=== PATIENT | female | born 1970 | race Caucasian/White ===

== ENCOUNTER 2017-01-24 19:01 | Inpatient (IN) | payer SELFPAY ==
[~2017-01-24] VITALS: Ht 165.1 cm; Wt 122.0 kg
[2017-01-24] MEDS ORDERED: ONDANSETRON 8 MG/54 ML D5W IV STA (19:25)
[2017-01-24] MEDS ORDERED: MoRPHine SULFATE 4 MG/ML 1 ML CARP\\VIAL IV STA ×3 (19:25→22:49)
[2017-01-24] MEDS ORDERED: SODIUM CHLORIDE 0.9% 1000ML 1,000 ML IV STA ×2 (19:25→22:49)
--- NOTE | 2017-01-24 19:25 | EMERGENCY ROOM VISIT NOTE ---
History Report prepared by Elizabeth: Mervin Jalloh Under the Supervision of: Dr. Nicky Jackson D.O. First contact with patient: 19:12 Chief Complaint: ABDOMINAL PAIN Stated Complaint: SEVERE STOMACH PAINS;IN FRONT History of Present Illness The patient is a 46 year old female who presents to the Emergency Room with complaints of worsening/intermittent cramping abdominal pain that began 6 hours ago. She rates her pain an 8/10 in severity. She notes that on her way to the ER , her pain subsided, however it quickly came back. Changing positions does not alter the pain at all. Earlier this morning before the pain began, she had 3 episodes of diarrhea. She denies any hematochezia or melena. She is experiencing chills and nausea. She denies any vomiting or abnormal urinary symptoms. She has a history of diverticulitis and a partial bowel removal. She has not had any stomach ulcers or upper GI problems. Her pain is not in the same place as her prior diverticulitis. She has not taken anything for her pain. Source of History: patient Onset: 6 hours ago Position: abdomen Symptom Intensity: 8/10 Quality: cramping Timing: intermittent, worsening Associated Symptoms: + chills, + nausea, + diarrhea, No fevers, No vomiting , No melena, No hematochezia, No urinary symptoms Review of Systems See HPI for pertinent positives & negatives. A total of 10 systems reviewed and were otherwise negative. Past Medical & Surgical Medical Problems: (1) History of colonic diverticulitis Surgical Problems: (1) History of incisional hernia repair (2) Status post excision vulvar carcinoma in situ (3) Status post partial colectomy (4) Status post tubal ligation Family History Omitted secondary to her age. Social History Smoking Status: Current Every Day Smoker Drug Use: none Marital Status: Housing Status: lives with significant other Occupation Status: employed Current/Historical Medications No Active Prescriptions or Reported Meds Allergies Coded Allergies: No Known Allergies (Unverified , 01/24/17) Physical Exam Vital Signs Date Time Temp Pulse Resp B/P (MAP) Pulse Ox O2 Delivery O2 Flow Rate FiO2 01/25/17 00:36 75 15 92 01/25/17 00:31 74 19 143/99 96 Room Air 01/25/17 00:25 96 Room Air 01/25/17 00:05 124/59 01/25/17 00:01 65 20 01/24/17 23:31 70 17 98 Nasal Cannula 2.0 01/24/17 23:30 98 Nasal Cannula 01/24/17 23:25 71 01/24/17 23:16 96 Nasal Cannula 2.0 01/24/17 23:15 88 Room Air 01/24/17 23:15 96 Nasal Cannula 2.0 01/24/17 22:56 155/101 01/24/17 22:55 72 20 155/101 93 Room Air 01/24/17 20:59 70 18 151/84 94 Room Air 01/24/17 19:04 36.7 90 18 143/101 96 Room Air Physical Exam GENERAL: Obese female, alert, tearful appearing, well nourished, moderate distress, non-toxic, holding abdomen. EYE EXAM: normal conjunctiva, PERRL and EOM's grossly intact OROPHARYNX: no exudate, no erythema, lips, buccal mucosa, and tongue normal and mucous membranes are moist NECK: supple, no nuchal rigidity, no adenopathy, non-tender LUNGS: Clear to auscultation. Normal chest wall mechanics HEART: no murmurs, S1 normal and S2 normal ABDOMEN: abdomen soft, non-tender, normo-active bowel sounds, no masses, no rebound or guarding. No reproducible abdominal pain. BACK: Back is symmetrical on inspection and there is no deformity, no midline tenderness, no CVA tenderness. SKIN: no rashes and no bruising UPPER EXTREMITIES: upper extremities are grossly normal. LOWER EXTREMITIES: No pitting edema. NEURO EXAM: Normal sensorium, cranial nerves II-XII grossly intact, normal speech, no gross weakness of arms, no gross weakness of legs. Medical Decision & Procedures ER Provider Diagnostic Interpretation: Radiology results have been interpreted by the radiologist and reviewed by me. CT OF THE ABDOMEN AND PELVIS WITH CONTRAST CLINICAL HISTORY: Abdominal pain and diarrhea. COMPARISON STUDY: CT of the abdomen and pelvis July 08, 2014. TECHNIQUE: Following IV administration of 116 mL of Optiray-320, axial images of the abdomen and pelvis were obtained from the lung bases to the proximal femurs. Images were reviewed in the axial, sagittal, and coronal planes. IV contrast was administered without complication. A dose lowering technique was utilized adhering to the principles of ALARA. Oral contrast was administered. CT DOSE: 1693.67 mGy.cm FINDINGS: Fatty infiltration of the liver is noted. The spleen, adrenal glands, kidneys and pancreas are unremarkable with the exception of a 9 mm right renal cyst. There is no peripancreatic or pericholecystic infiltration. There is no hydronephrosis. Note is made of a previous sigmoid resection. A previous left lower quadrant ostomy site is noted. A few mildly dilated loops of small bowel within the right lower quadrant are noted, measuring up to 3.3 cm in caliber. Small bowel feces sign is noted. Transition point is noted within the distal ileum shown on image 366 of 491. The small bowel loops appear kinked. This reflects a partial small bowel obstruction. There is a small amount of ascites. The appendix is normal. No suspicious osseous lesions are present. A locule of gas anterior to the uterus and superior to the bladder shown on axial image 379 of 491 is indeterminate in location. There is no significant bowel wall thickening. No pneumatosis, free air or portal venous gas is present. There is mild mesenteric infiltration. IMPRESSION: 1. Findings consistent with a partial small bowel obstruction. Mild small bowel dilatation with transition point within the right lower quadrant, within the distal ileum. Small bowel feces sign. Mild mesenteric infiltration and ascites. No free air, pneumatosis or portal venous gas. 2. Status post sigmoid resection with a previous left lower quadrant ostomy. 3. Fatty infiltration of the liver. Electronically signed by: Bryson Matthews M.D. 01/24/2017 11:01 PM Dictated Date/Time: 01/24/2017 10:51 PM Laboratory Results 01/24/17 19:48 Red Blood Count 5.14, Mean Corpuscular Volume 87.7, Mean Corpuscular Hemoglobin 28.4, Mean Corpuscular Hemoglobin Concent 32.4, Mean Platelet Volume 9.4, Neutrophils (%) (Auto) 77.3, Lymphocytes (%) (Auto) 18.3, Monocytes (%) (Auto) 3.6, Eosinophils (%) (Auto) 0.5, Basophils (%) (Auto) 0.1, Neutrophils # (Auto) 7.93, Lymphocytes # (Auto) 1.88, Monocytes # (Auto) 0.37, Eosinophils # (Auto) 0.05, Basophils # (Auto) 0.01 Test 01/24/17 19:48 01/24/17 20:13 White Blood Count 10.26 K/uL (4.8-10.8) Red Blood Count 5.14 M/uL (4.2-5.4) Hemoglobin 14.6 g/dL (12.0-16.0) Hematocrit 45.1 % (37-47) Mean Corpuscular Volume 87.7 fL (80-100) Mean Corpuscular Hemoglobin 28.4 pg (25-34) Mean Corpuscular Hemoglobin Concent 32.4 g/dl (32-36) Platelet Count 292 K/uL (130-400) Mean Platelet Volume 9.4 fL (7.4-10.4) Neutrophils (%) (Auto) 77.3 % Lymphocytes (%) (Auto) 18.3 % Monocytes (%) (Auto) 3.6 % Eosinophils (%) (Auto) 0.5 % Basophils (%) (Auto) 0.1 % Neutrophils # (Auto) 7.93 K/uL (1.4-6.5) Lymphocytes # (Auto) 1.88 K/uL (1.2-3.4) Monocytes # (Auto) 0.37 K/uL (0.11-0.59) Eosinophils # (Auto) 0.05 K/uL (0-0.5) Basophils # (Auto) 0.01 K/uL (0-0.2) RDW Standard Deviation 53.7 fL (36.4-46.3) RDW Coefficient of Variation 16.7 % (11.5-14.5) Immature Granulocyte % (Auto) 0.2 % Immature Granulocyte # (Auto) 0.02 K/uL (0.00-0.02) Lactic Acid Level 1.5 mmol/L (0.4-2.0) Total Bilirubin 0.3 mg/dl (0.2-1) Aspartate Amino Transf (AST/SGOT) 14 U/L (15-37) Alanine Aminotransferase (ALT/SGPT) 25 U/L (12-78) Alkaline Phosphatase 182 U/L (45-117) Troponin I < 0.015 ng/ml (0-0.045) Total Protein 7.2 gm/dl (6.4-8.2) Albumin 3.3 gm/dl (3.4-5.0) Globulin 3.9 gm/dl (2.5-4.0) Albumin/Globulin Ratio 0.8 (0.9-2) Lipase 84 U/L (73-393) Urine Color YELLOW Urine Appearance CLEAR (CLEAR) Urine pH 7.0 (4.5-7.5) Urine Specific [place] 1.022 (1.000-1.030) Urine Protein NEG (NEG) Urine Glucose (UA) NEG (NEG) Urine Ketones NEG (NEG) Urine Occult Blood NEG (NEG) Urine Nitrite NEG (NEG) Urine Bilirubin NEG (NEG) Urine Urobilinogen NEG (NEG) Urine Leukocyte Esterase NEG (NEG) Laboratory results per my review. Medications Administered Medications (Trade) Dose Ordered Sig/Laz Route Start Time Stop Time Status Last Admin Dose Admin Sodium Chloride 1,000 ml @ 999 mls/hr Q1H1M STAT IV 01/24/17 19:25 01/24/17 20:25 DC 01/24/17 20:03 999 MLS/HR Ondansetron HCl (Zofran 8mg Iv) 8 mg NOW STAT IV 01/24/17 19:25 01/24/17 19:27 DC 01/24/17 20:03 8 MG Morphine Sulfate (MoRPHine SULFATE INJ) 4 mg NOW STAT IV 01/24/17 19:25 01/24/17 19:27 DC 01/24/17 20:04 4 MG Morphine Sulfate (MoRPHine SULFATE INJ) 4 mg NOW STAT IV 01/24/17 20:57 01/24/17 20:58 DC 01/24/17 21:02 4 MG Morphine Sulfate (MoRPHine SULFATE INJ) 4 mg NOW STAT IV 01/24/17 22:49 01/24/17 22:50 DC 01/24/17 22:56 4 MG Sodium Chloride 1,000 ml @ 999 mls/hr Q1H1M STAT IV 01/24/17 22:49 01/24/17 23:49 DC 01/24/17 22:58 999 MLS/HR ECG Indication: abdominal pain Rate (beats per minute): 73 Rhythm: sinus rhythm Findings: no acute ischemic change, other (Normal axis, Normal intervals) ED Course 1911: The patient was evaluated in room A4A. A complete history and physical exam was performed. 1924: Ordered Morphine Sulfate 4 mg IV, Ondansetron HCl 8 mg IV, Sodium Chloride 1000 ml @ 999 mls/hr IV. 2051: I reevaluated the patient at this time. She is still having pain. I updated her on her results, and I will order her more pain medication. 2056: Ordered Morphine Sulfate 4 mg IV 2248: Ordered Sodium Chloride 1000 ml @ 999 mls/hr IV, Morphine Sulfate 4 mg IV 4: We discussed the patient's results and my wishes for further management as an inpatient. She understands and accepts. 2350: Upon reevaluation, the patient is resting. I discussed the findings and the treatment plan with the patient. She expresses agreement and understanding. I spoke with Dr. Valles of the [facility]. She will be evaluated for further management. An NG tube will be placed per his wishes. Medical Decision Differential diagnosis: Etiologies such as appendicitis, diverticulitis, PUD, biliary pathology, UTI, pancreatitis, obstruction, mesenteric ischemia, aortic pathology, infections, inflammatory bowel disease, renal colic, as well as others were entertained. Medication Reconciliation: I attest that I have personally reviewed the patient' s current medication list. Blood pressure screening: Patient was found to have a slightly elevated blood pressure due to circumstances. I do not believe that the patient requires hypertension monitoring. Pt found to have pSBO likely from prior adhesions due to surgery. No vomiting or fevers here. Pain controlled with morphine and IVF running. Pt aware of all results and agreeable with plan for admission. Doubt ischemia or additional occult infectious etiology. Consults Time Called: 2344 Consulting Physician: Dr. Valles - [facility] Returned Call: [phone] He will be evaluating the patient for further management and care. He would like an NG tube placed in the patient. Impression Primary Impression: Central abdominal pain Additional Impression: Partial small bowel obstruction Scribe Attestation The scribe's documentation has been prepared under my direction and personally reviewed by me in its entirety. I confirm that the note above accurately reflects all work, treatment, procedures, and medical decision making performed by me. Departure Information Dispostion Being Evaluated By Hospitalist Prescriptions No Active Prescriptions or Reported Meds Referrals Gordon Fisher M.D.([facility]) (PCP) Patient Instructions My [facility] Problem Qualifiers
[2017-01-24 20:15] LABS: BASO % 0.1 %; BASO ABS # 0.01 K/uL (0-0.2); COMPLETE YES; EOS % 0.5 %; HEMATOCRIT 45.1 % (37-47); IG% 0.2 %; LYMPH % 18.3 %; LYMPH ABS # 1.88 K/uL (1.2-3.4); MEAN CELL VOLUME 87.7 fL (80-100); MEAN CORPUSCULAR HEMOGLOBIN 28.4 pg (25-34); MEAN CORPUSCULAR HGB CONC 32.4 g/dl (32-36); MEAN PLATELET VOLUME 9.4 fL (7.4-10.4); MONO % 3.6 %; NEUT % 77.3 %; PLATELET COUNT 292 K/uL (130-400); RED BLOOD COUNT 5.14 M/uL (4.2-5.4); WHITE BLOOD COUNT 10.26 K/uL (4.8-10.8)
[2017-01-24 20:32] LABS: ALT/SGPT 25 U/L (12-78); AST/SGOT 14 U/L (15-37); BLOOD UREA NITROGEN 8 mg/dl (7-18); BUN/CREATININE RATIO 10.1 (10-20); CALCIUM 9.4 mg/dl (8.5-10.1); CARBON DIOXIDE 28 mmol/L (21-32); CHLORIDE 108 mmol/L (98-107); CREATININE 0.84 mg/dl (0.60-1.20); GLUCOSE 97 mg/dl (70-99); POTASSIUM 4.2 mmol/L (3.5-5.1); SODIUM 140 mmol/L (136-145)
[2017-01-24 20:37] LABS: URINE APPEARANCE CLEAR (CLEAR); URINE BILIRUBIN NEG (NEG); URINE COLOR YELLOW; URINE NITRITE NEG (NEG); URINE SPECIFIC GRAVITY 1.022 (1.000-1.030); UROBILINOGEN NEG (NEG); ZZUR CULT IF INDIC CLEAN CATCH NO
[2017-01-24 20:37] LABS: ALB/GLOB RATIO 0.8 (0.9-2); ALKALINE PHOSPHATASE 182 U/L (45-117)
[2017-01-24 20:41] LABS: MANUAL MICROSCOPIC REQUIRED? NO; REVIEW REQ? NO
--- NOTE | 2017-01-24 23:02 | DIAGNOSTIC IMAGING REPORT ---
CT OF THE ABDOMEN AND PELVIS WITH CONTRAST CLINICAL HISTORY: Abdominal pain and diarrhea. COMPARISON STUDY: CT of the abdomen and pelvis July 08, 2014. TECHNIQUE: Following IV administration of 116 mL of Optiray-320, axial images of the abdomen and pelvis were obtained from the lung bases to the proximal femurs. Images were reviewed in the axial, sagittal, and coronal planes. IV contrast was administered without complication. A dose lowering technique was utilized adhering to the principles of ALARA. Oral contrast was administered. CT DOSE: 1693.67 mGy.cm FINDINGS: Fatty infiltration of the liver is noted. The spleen, adrenal glands, kidneys and pancreas are unremarkable with the exception of a 9 mm right renal cyst. There is no peripancreatic or pericholecystic infiltration. There is no hydronephrosis. Note is made of a previous sigmoid resection. A previous left lower quadrant ostomy site is noted. A few mildly dilated loops of small bowel within the right lower quadrant are noted, measuring up to 3.3 cm in caliber. Small bowel feces sign is noted. Transition point is noted within the distal ileum shown on image 366 of 491. The small bowel loops appear kinked. This reflects a partial small bowel obstruction. There is a small amount of ascites. The appendix is normal. No suspicious osseous lesions are present. A locule of gas anterior to the uterus and superior to the bladder shown on axial image 379 of 491 is indeterminate in location. There is no significant bowel wall thickening. No pneumatosis, free air or portal venous gas is present. There is mild mesenteric infiltration. IMPRESSION: 1. Findings consistent with a partial small bowel obstruction. Mild small bowel dilatation with transition point within the right lower quadrant, within the distal ileum. Small bowel feces sign. Mild mesenteric infiltration and ascites. No free air, pneumatosis or portal venous gas. 2. Status post sigmoid resection with a previous left lower quadrant ostomy. 3. Fatty infiltration of the liver. Electronically signed by: Bryson Matthews M.D. 01/24/2017 11:01 PM Dictated Date/Time: 01/24/2017 10:51 PM
[2017-01-25] MEDS ORDERED: ONDANSETRON INJ 2 MG/ML 2 ML VIAL IV PRN (00:45)
--- NOTE | 2017-01-25 01:05 | History and Physical ---
History & Physical Date & Time of Service: Jan 25, 2017 at 01:05 . Chief Complaint: abdominal pain . Primary Care Physician: Gordon Fisher M.D.(JANET) . History of Present Illness Source: patient, clinic records, hospital records 46-year-old female followed by Dr. Fisher. History of diverticulitis with diverticular abscess in 2010. Exploratory laparotomy, drainage of abscess, and left colon resection with Kin procedure in October 2010. Laparoscopic assisted colon resection and closure of colostomy February 2011. Repair of incisional hernia October 2011. This afternoon she developed sudden onset of mid abdominal pain. The pain was moderately severe. It did not radiate. Associated with nausea, no emesis. Last normal bowel movement was yesterday. No melena or hematochezia. No fever. No dysuria or hematuria. Came to the ED for evaluation. Had some relief after administration of ondansetron and morphine. Placement of nasogastric tube was attempted in the ED, but the patient could not tolerate the procedure. . Past Medical/Surgical History Chronic and Resolved Medical Problems: (1) History of colonic diverticulitis Permanent Comment: 2010, complicated by abscess Status: Chronic Surgical Problems: (1) History of incisional hernia repair Permanent Comment: 2011 Status: Chronic (2) Status post excision vulvar carcinoma in situ Status: Chronic (3) Status post partial colectomy Permanent Comment: 2010 with reversal of colostomy Status: Chronic (4) Status post tubal ligation Status: Chronic . Family History FATHER Myocardial infarction Social History Smoking Status: Current Every Day Smoker Alcohol Use: occasionally Drug Use: none Marital Status: Housing status: lives alone Occupational Status: employed Immunizations History of Influenza Vaccine: No History of Tetanus Vaccine?: Yes Tetanus Immunization Date: October 29, 2000 History of Pneumococcal: No History of Hepatitis B Vaccine: Unknown Multi-Drug Resistant Organisms History of MDRO: No Allergies Coded Allergies: No Known Allergies (Unverified , 01/24/17) Home Medications No Active Prescriptions or Reported Meds Review of Systems Constitutional: No fever, No weight loss Eyes: No worsening of vision, No diplopia ENT: No nasal symptoms, No sore throat Respiratory: No cough, No shortness of breath Cardiovascular: No chest pain, No edema, No palpitations Abdomen: + problem reported (as noted above in HPI) Genitourinary - Female: No dysuria, No hematuria Neurologic: + problem reported (no headaches) Endocrine: No excessive thirst, No excessive urination Hematologic / Lymphatic: No abnormal bleeding/bruising, No swollen lymph nodes Integumentary: No rash, No itch, No new/changing skin lesions Physical Exam Vital Signs Date Time Temp Pulse Resp B/P (MAP) Pulse Ox O2 Delivery O2 Flow Rate FiO2 01/25/17 00:52 97 Nasal Cannula 2.0 01/25/17 00:50 89 Room Air 01/25/17 00:31 74 19 143/99 96 Room Air 01/25/17 00:25 96 Room Air 01/25/17 00:05 124/59 01/25/17 00:01 65 20 01/24/17 23:31 70 17 98 Nasal Cannula 2.0 01/24/17 23:30 98 Nasal Cannula 01/24/17 23:25 71 01/24/17 23:16 96 Nasal Cannula 2.0 01/24/17 23:15 88 Room Air 01/24/17 23:15 96 Nasal Cannula 2.0 01/24/17 22:56 155/101 01/24/17 22:55 72 20 155/101 93 Room Air 01/24/17 20:59 70 18 151/84 94 Room Air 01/24/17 19:04 36.7 90 18 143/101 96 Room Air General Appearance: WD/WN, + mild distress Head: normocephalic, atraumatic Eyes: normal inspection, PERRL, EOMI, sclerae normal ENT: hearing grossly normal, pharynx normal, + pertinent finding (upper and lower dentures) Neck: supple, no adenopathy, thyroid normal, trachea midline Respiratory/Chest: lungs clear, normal breath sounds, no accessory muscle use Cardiovascular: regular rate, rhythm, no edema, no gallop, no JVD, no murmur, normal peripheral pulses Abdomen/GI: + pertinent finding (slightly distended, hyperactive bowel sounds, moderate mid abdominal tenderness, no palpable masses or hepatosplenomegaly) Extremities/Musculoskelatal: no calf tenderness, no pedal edema 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 (PERRL, EOMI, no facial palsy, no dysarthria), no motor/sensory deficits (motor strength grossly intact bilaterally), alert, normal mood/affect, oriented x 3 Skin: normal color, warm/dry, no rash Lymphatic: no adenopathy (cervical) Diagnostics Laboratory Results Results Past 24 Hours Test 01/24/17 19:48 01/24/17 20:13 Range/Units White Blood Count 10.26 4.8-10.8 K/uL Red Blood Count 5.14 4.2-5.4 M/uL Hemoglobin 14.6 12.0-16.0 g/dL Hematocrit 45.1 37-47 % Mean Corpuscular Volume 87.7 80-100 fL Mean Corpuscular Hemoglobin 28.4 25-34 pg Mean Corpuscular Hemoglobin Concent 32.4 32-36 g/dl Platelet Count 292 130-400 K/uL Mean Platelet Volume 9.4 7.4-10.4 fL Neutrophils (%) (Auto) 77.3 % Lymphocytes (%) (Auto) 18.3 % Monocytes (%) (Auto) 3.6 % Eosinophils (%) (Auto) 0.5 % Basophils (%) (Auto) 0.1 % Neutrophils # (Auto) 7.93 1.4-6.5 K/uL Lymphocytes # (Auto) 1.88 1.2-3.4 K/uL Monocytes # (Auto) 0.37 0.11-0.59 K/uL Eosinophils # (Auto) 0.05 0-0.5 K/uL Basophils # (Auto) 0.01 0-0.2 K/uL RDW Standard Deviation 53.7 36.4-46.3 fL RDW Coefficient of Variation 16.7 11.5-14.5 % Immature Granulocyte % (Auto) 0.2 % Immature Granulocyte # (Auto) 0.02 0.00-0.02 K/uL Sodium Level 140 136-145 mmol/L Potassium Level 4.2 3.5-5.1 mmol/L Chloride Level 108 98-107 mmol/L Carbon Dioxide Level 28 21-32 mmol/L Anion Gap 4.0 3-11 mmol/L Blood Urea Nitrogen 8 7-18 mg/dl Creatinine 0.84 0.60-1.20 mg/dl Est Creatinine Clear Calc Drug Dose 108.5 ml/min Estimated GFR () 95.9 Estimated GFR (Non- 82.8 BUN/Creatinine Ratio 10.1 10-20 Random Glucose 97 70-99 mg/dl Lactic Acid Level 1.5 0.4-2.0 mmol/L Calcium Level 9.4 8.5-10.1 mg/dl Total Bilirubin 0.3 0.2-1 mg/dl Aspartate Amino Transf (AST/SGOT) 14 15-37 U/L Alanine Aminotransferase (ALT/SGPT) 25 12-78 U/L Alkaline Phosphatase 182 45-117 U/L Troponin I < 0.015 0-0.045 ng/ml Total Protein 7.2 6.4-8.2 gm/dl Albumin 3.3 3.4-5.0 gm/dl Globulin 3.9 2.5-4.0 gm/dl Albumin/Globulin Ratio 0.8 0.9-2 Lipase 84 73-393 U/L Urine Color YELLOW Urine Appearance CLEAR CLEAR Urine pH 7.0 4.5-7.5 Urine Specific [place] 1.022 1.000-1.030 Urine Protein NEG NEG Urine Glucose (UA) NEG NEG Urine Ketones NEG NEG Urine Occult Blood NEG NEG Urine Nitrite NEG NEG Urine Bilirubin NEG NEG Urine Urobilinogen NEG NEG Urine Leukocyte Esterase NEG NEG Diagnostic Radiology CT OF ABDOMEN AND PELVIS reviewed by the undersigned and formerly interpreted by Radiology: IMPRESSION: 1. Findings consistent with a partial small bowel obstruction. Mild small bowel dilatation with transition point within the right lower quadrant, within the distal ileum. Small bowel feces sign. Mild mesenteric infiltration and ascites. No free air, pneumatosis or portal venous gas. 2. Status post sigmoid resection with a previous left lower quadrant ostomy. 3. Fatty infiltration of the liver. Electronically signed by: Bryson Matthews M.D. 01/24/2017 11:01 PM Dictated Date/Time: 01/24/2017 10:51 PM . Impression Assessment and Plan PARTIAL SMALL BOWEL OBSTRUCTION CT of abdomen and pelvis suggests partial small bowel obstruction. Most likely secondary to adhesions. Placement of nasogastric tube was attempted in ED, but patient could not tolerate the procedure. Initial management will consist of bowel rest, IV fluids, analgesics, antiemetics. Consult General Surgery for their input. VTE PROPHYLAXIS SQ enoxaparin. Ambulate. DISPOSITION Admit to MedSurg Unit. Expected discharge to home. Family Medicine follow-up with Dr. Fisher. . VTE Prophylaxis VTE Risk Assessment Done? Y/N: Yes Risk Level: Moderate Given or contraindicated: Enoxaparin (Lovenox)SQ
[2017-01-25 01:30] VITALS: BP 118/70; PULSE 69; TEMP 36.8; O2SAT 94
[2017-01-25 01:44] VITALS: BP 118/70; PULSE 69; TEMP 36.8; Ht 165.1 cm; Wt 122.0 kg
[2017-01-25] MEDS: HYDROmorphone INJ 0.5 MG/0.5 ML SYR IV PRN ×5 (01:58→21:35)
[2017-01-25] MEDS: D5W AND LACTATED RINGERS 1,000 ML IV SCH ×3 (02:20→14:04)
[2017-01-25] MEDS: RANITIDINE IV 50 MG in DEXTROSE 5% 100ML 100 ML IV SCH ×3 (05:42→21:35)
[2017-01-25 06:34] LABS: PARTIAL THROMBOPLASTIN RATIO 1.1; PROTHROMBIN TIME (PATIENT) 10.2 SECONDS (9.0-12.0)
[2017-01-25 06:45] LABS: BUN/CREATININE RATIO 7.5 (10-20); CALCIUM 8.9 mg/dl (8.5-10.1); CREATININE 0.76 mg/dl (0.60-1.20); POTASSIUM 4.1 mmol/L (3.5-5.1)
[2017-01-25] MEDS: ENOXAPARIN 40 MG/0.4 ML SYR SQ SCH (08:36)
--- NOTE | 2017-01-25 14:37 | Progress Note ---
Internal Med Progress Note Date of Service: Jan 25, 2017. Provider Documentation: SUBJECTIVE: does not have any nausea abdominal pain has improved markedly had 2-3 episodes of loose bowel movement this AM no fever or chills OBJECTIVE: Vital Signs-as noted below Exam: General-obese, no sign of distress Eyes-sclera non icteric ENT-NAD Neck-no JVD Lungs-CTA Heart-regular S1/S2 Abdomen-soft, non tenderness noted on palpation , bowel sound active Extremities-no rash or deformity Neuro-no focal deficit Lab data as noted below. ASSESSMENT & PLAN: PARTIAL SMALL BOWEL OBSTRUCTION hx of abdominal surgery in 2010 -Spencer's procedure /s/p colostomy reversal CT of abdomen and pelvis suggests partial small bowel obstruction. Most likely secondary to adhesions. clinically improving no nausea , minimum abdominal pain passing stool cont of bowel rest -slow advance as tolerated ( on ice chips /sips ) will order for clear liquid in dinner if no nausea or abdominal discomfort noted cont IV fluids, analgesics, antiemetics. ordered for repeat KUB in AM Consulted General Surgery for further input. VTE PROPHYLAXIS moderate risk SQ enoxaparin. pt is encouraged to Ambulate. DISPOSITION Expected discharge to home. Family Medicine follow-up with Dr. Fisher. Vital Signs: Date Time Temp Pulse Resp B/P (MAP) Pulse Ox O2 Delivery O2 Flow Rate FiO2 01/25/17 07:45 Room Air 01/25/17 01:44 Room Air 01/25/17 01:44 36.8 69 18 118/70 Room Air 01/25/17 01:30 36.8 69 18 118/70 (86) 94 Room Air 01/25/17 01:06 65 17 95 Nasal Cannula 2.0 01/25/17 01:02 104/61 01/25/17 00:52 97 Nasal Cannula 2.0 01/25/17 00:50 89 Room Air 01/25/17 00:36 75 15 92 01/25/17 00:31 74 19 143/99 96 Room Air 01/25/17 00:25 96 Room Air 01/25/17 00:05 124/59 01/25/17 00:01 65 20 01/24/17 23:31 70 17 98 Nasal Cannula 2.0 01/24/17 23:30 98 Nasal Cannula 01/24/17 23:25 71 01/24/17 23:16 96 Nasal Cannula 2.0 01/24/17 23:15 88 Room Air 01/24/17 23:15 96 Nasal Cannula 2.0 01/24/17 22:56 155/101 01/24/17 22:55 72 20 155/101 93 Room Air 01/24/17 20:59 70 18 151/84 94 Room Air 01/24/17 19:04 36.7 90 18 143/101 96 Room Air Lab Results: Results Past 24 Hours Test 01/24/17 19:48 01/24/17 20:13 01/25/17 05:34 01/25/17 05:35 Range/Units White Blood Count 10.26 4.8-10.8 K/uL Red Blood Count 5.14 4.2-5.4 M/uL Hemoglobin 14.6 12.0-16.0 g/dL Hematocrit 45.1 37-47 % Mean Corpuscular Volume 87.7 80-100 fL Mean Corpuscular Hemoglobin 28.4 25-34 pg Mean Corpuscular Hemoglobin Concent 32.4 32-36 g/dl Platelet Count 292 130-400 K/uL Mean Platelet Volume 9.4 7.4-10.4 fL Neutrophils (%) (Auto) 77.3 % Lymphocytes (%) (Auto) 18.3 % Monocytes (%) (Auto) 3.6 % Eosinophils (%) (Auto) 0.5 % Basophils (%) (Auto) 0.1 % Neutrophils # (Auto) 7.93 1.4-6.5 K/uL Lymphocytes # (Auto) 1.88 1.2-3.4 K/uL Monocytes # (Auto) 0.37 0.11-0.59 K/uL Eosinophils # (Auto) 0.05 0-0.5 K/uL Basophils # (Auto) 0.01 0-0.2 K/uL RDW Standard Deviation 53.7 36.4-46.3 fL RDW Coefficient of Variation 16.7 11.5-14.5 % Immature Granulocyte % (Auto) 0.2 % Immature Granulocyte # (Auto) 0.02 0.00-0.02 K/uL Sodium Level 140 142 136-145 mmol/L Potassium Level 4.2 4.1 3.5-5.1 mmol/L Chloride Level 108 110 98-107 mmol/L Carbon Dioxide Level 28 30 21-32 mmol/L Anion Gap 4.0 2.0 3-11 mmol/L Blood Urea Nitrogen 8 6 7-18 mg/dl Creatinine 0.84 0.76 0.60-1.20 mg/dl Est Creatinine Clear Calc Drug Dose 108.5 119.9 ml/min Estimated GFR () 95.9 108.3 Estimated GFR (Non- 82.8 93.4 BUN/Creatinine Ratio 10.1 7.5 10-20 Random Glucose 97 112 70-99 mg/dl Lactic Acid Level 1.5 0.4-2.0 mmol/L Calcium Level 9.4 8.9 8.5-10.1 mg/dl Total Bilirubin 0.3 0.2-1 mg/dl Aspartate Amino Transf (AST/SGOT) 14 15-37 U/L Alanine Aminotransferase (ALT/SGPT) 25 12-78 U/L Alkaline Phosphatase 182 45-117 U/L Troponin I < 0.015 0-0.045 ng/ml Total Protein 7.2 6.4-8.2 gm/dl Albumin 3.3 3.4-5.0 gm/dl Globulin 3.9 2.5-4.0 gm/dl Albumin/Globulin Ratio 0.8 0.9-2 Lipase 84 73-393 U/L Urine Color YELLOW Urine Appearance CLEAR CLEAR Urine pH 7.0 4.5-7.5 Urine Specific [place] 1.022 1.000-1.030 Urine Protein NEG NEG Urine Glucose (UA) NEG NEG Urine Ketones NEG NEG Urine Occult Blood NEG NEG Urine Nitrite NEG NEG Urine Bilirubin NEG NEG Urine Urobilinogen NEG NEG Urine Leukocyte Esterase NEG NEG Prothrombin Time 10.2 9.0-12.0 SECONDS Prothromb Time International Ratio 1.0 0.9-1.1 Activated Partial Thromboplast Time 28.3 21.0-31.0 SECONDS Partial Thromboplastin Ratio 1.1
[2017-01-25 15:31] VITALS: BP 122/83; PULSE 71; TEMP 36.9; O2SAT 94
--- NOTE | 2017-01-25 21:07 | SURGICAL CONSULTATION ---
DATE OF CONSULTATION: 01/25/2017 HISTORY OF PRESENT ILLNESS: I have been asked by Dr. Myers to see this 46-year-old female who presented to the Emergency Room with a complaint of abdominal pain centered in the middle of her abdomen just above the umbilicus. It began yesterday and became severe and sharp. She has never had pain like that before in that area. It was associated with nausea, but she did not have vomiting until she presented to the Emergency Room and an NG tube placement was attempted and removed the NG tube because it continued to cause her to gag and vomit. She had not been passing her bowels or flatus. She had no dysuria or hematuria. She has had 3 abdominal procedures in the past. This morning and this afternoon she has had 4 liquid bowel movements. She is not passing much flatus; however. The pain has decreased significantly such that it is now minimal. She no longer has nausea. PAST MEDICAL HISTORY: None. PAST SURGICAL HISTORY: For a Kin procedure followed then by a reversal of the colostomy, followed by incisional hernia repair that was performed with mesh. MEDICATIONS AT HOME: None. ALLERGIES: None. SOCIAL HISTORY: She smokes half a pack per day. She does not chew tobacco and she drinks alcohol occasionally. PHYSICAL EXAMINATION: GENERAL: Reveals an obese female who appears in no acute distress. VITAL SIGNS: Blood pressure 122/83, heart rate 71, respirations 18, temperature is 36.9, pulse oximetry is 94% on room air. HEENT: Reveals sclerae to be anicteric. Mucous membranes are moist. NECK: Supple, with no JVD, no adenopathy. BACK: Has no spinal or CVA tenderness. LUNGS: Clear. HEART: Regular. ABDOMEN: Has active bowel sounds. There is tenderness above the umbilicus, but it is minimal and only to deep palpation. EXTREMITIES: Reveal no edema. LABORATORY DATA: WBC 10.26, H&H is 14.6 and 41.5, platelet count 292,000. Sodium 142, potassium 4.1, chloride 110, CO2 of 30, BUN 6, creatinine 0.76, glucose 112. Total bilirubin yesterday 0.3, AST 14, ALT 25, alkaline phosphatase 182, lipase 84. CT scan of the abdomen and pelvis showed a few mildly dilated loops of small bowel within the right lower quadrant measuring 3.3 cm in caliber and small bowel feces noted with a transition point in the distal ileum reflecting a partial small-bowel obstruction. There was a small amount of ascites. The appendix was normal. ASSESSMENT AND PLAN: This patient has a partial small-bowel obstruction, but it is resolving as she has now had bowel movements and the pain has decreased in intensity. She no longer has nausea. I would continue with n.p.o. and just ice chips for now. If this continues to resolve, can begin clear liquids in the morning. There is no indication for surgical intervention at this time. Thank you for allowing me to see this patient and participate in her care.
[2017-01-25 23:02] VITALS: BP 111/74; PULSE 68; TEMP 36.9; O2SAT 93
[2017-01-26] MEDS: D5W AND LACTATED RINGERS 1,000 ML IV SCH ×3 (01:26→20:33)
[2017-01-26] MEDS: HYDROmorphone INJ 0.5 MG/0.5 ML SYR IV PRN ×6 (01:30→20:33)
[2017-01-26] MEDS: RANITIDINE IV 50 MG in DEXTROSE 5% 100ML 100 ML IV SCH ×3 (05:48→22:52)
[2017-01-26 06:41] LABS: BLOOD UREA NITROGEN 2 mg/dl (7-18); BUN/CREATININE RATIO 3.3 (10-20); CALCIUM 8.6 mg/dl (8.5-10.1); CARBON DIOXIDE 29 mmol/L (21-32); CHLORIDE 108 mmol/L (98-107); CREATININE 0.71 mg/dl (0.60-1.20); GLUCOSE 96 mg/dl (70-99); SODIUM 142 mmol/L (136-145)
[2017-01-26 07:07] VITALS: BP 134/88; PULSE 63; TEMP 36.8; O2SAT 94
[2017-01-26] MEDS: ENOXAPARIN 40 MG/0.4 ML SYR SQ SCH (09:40)
--- NOTE | 2017-01-26 10:43 | Surgery Progress Note ---
Surgery Progress Note Date of Service Jan 26, 2017. Subjective + ambulating, + bowel movement, No chest pain, No SOB, No flatus, No nausea, No vomiting "Not feeling so well today" Feels better than she did Thursday but not much improvement from yesterday. Still having some abdominal pain, intermittent and then resolves. Not passing much gas but having watery liquid bowel movements. No nausea or vomiting did not take much of clear liquids for breakfast just some hot tea. Objective Vital Signs: Date Time Temp Pulse Resp B/P (MAP) Pulse Ox O2 Delivery O2 Flow Rate FiO2 01/26/17 07:07 36.8 63 17 134/88 (103) 94 Room Air 01/25/17 23:35 Room Air 01/25/17 23:02 36.9 68 15 111/74 (86) 93 Room Air 01/25/17 16:00 Room Air 01/25/17 15:31 36.9 71 18 122/83 (96) 94 Room Air General Appearance: WD/WN, no apparent distress, + obese Head: normocephalic, atraumatic Neck: trachea midline Respiratory/Chest: no respiratory distress, no accessory muscle use Abdomen: non tender, non distended, soft, + abnormal bowel sounds (hypoactive bowel sounds) Laboratory Results: Results Past 24 Hours Test 01/26/17 05:36 01/26/17 06:46 Range/Units Sodium Level 142 136-145 mmol/L Potassium Level 3.6 3.5-5.1 mmol/L Chloride Level 108 98-107 mmol/L Carbon Dioxide Level 29 21-32 mmol/L Anion Gap 5.0 3-11 mmol/L Blood Urea Nitrogen 2 7-18 mg/dl Creatinine 0.71 0.60-1.20 mg/dl Est Creatinine Clear Calc Drug Dose 128.3 ml/min Estimated GFR () 117.6 Estimated GFR (Non- 101.4 BUN/Creatinine Ratio 3.3 10-20 Random Glucose 96 70-99 mg/dl Calcium Level 8.6 8.5-10.1 mg/dl Assessment & Plan Partial Small Bowel Obstruction - vitals stable - + bowel movements, liquid - abdominal examination benign Plan: Continue conservative management at this time: IV fluids, Pain management as needed, Clear liquids Continue current medical management will follow Dr. Stewart has seen and examined patient, agrees with above
--- NOTE | 2017-01-26 13:28 | DIAGNOSTIC IMAGING REPORT ---
KUB CLINICAL HISTORY: PARTIAL SBO COMPARISON STUDY: CT scan dated 01/24/2017 FINDINGS: There is no pathologic bowel dilatation. There are no transition zones to indicate bowel obstruction. IMPRESSION: No conventional radiographic evidence of bowel obstruction. Electronically signed by: Bill Lepe M.D. 01/26/2017 1:27 PM Dictated Date/Time: 01/26/2017 1:25 PM
[2017-01-26 14:54] VITALS: BP 116/77; PULSE 63; TEMP 37.1; O2SAT 94
--- NOTE | 2017-01-26 15:21 | Progress Note ---
Subjective Date of Service: Jan 26, 2017. 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 Review of Systems Constitutional: No fever, No chills Respiratory: No cough, No sputum, No shortness of breath Cardiac: No chest pain Abdomen: + pain, No nausea, No vomiting, No diarrhea, No constipation, No GI bleeding Female : No dysuria, No urinary frequency Heme: No abnormal bleeding/bruising Medications Current Inpatient Medications Medications (Trade) Dose Ordered Sig/Laz Route Start Time Stop Time Status Last Admin Dose Admin Ondansetron HCl (Zofran Inj) 4 mg Q6H PRN IV 01/25/17 00:45 02/24/17 00:44 Dextrose/Lactated Ringer's 1,000 ml @ 100 mls/hr Q10H IV 01/25/17 01:15 02/24/17 01:14 01/26/17 10:52 100 MLS/HR Ranitidine HCl 50 mg/Dextrose 102 ml @ 200 mls/hr Q8 IV 01/25/17 06:00 02/24/17 05:59 01/26/17 13:34 200 MLS/HR Hydromorphone HCl (Dilaudid Inj) 0.5 mg Q3H PRN IV 01/25/17 01:15 02/08/17 01:14 01/26/17 13:34 0.5 MG Enoxaparin Sodium (Lovenox Inj) 40 mg QAM SQ 01/25/17 09:00 02/24/17 08:59 01/26/17 09:40 40 MG Objective Vital Signs Date Time Temp Pulse Resp B/P (MAP) Pulse Ox O2 Delivery O2 Flow Rate FiO2 01/26/17 14:54 37.1 63 18 116/77 (90) 94 Room Air 01/26/17 07:55 Room Air 01/26/17 07:07 36.8 63 17 134/88 (103) 94 Room Air 01/25/17 23:35 Room Air 01/25/17 23:02 36.9 68 15 111/74 (86) 93 Room Air 01/25/17 16:00 Room Air 01/25/17 15:31 36.9 71 18 122/83 (96) 94 Room Air Physical Exam General Appearance: no apparent distress Respiratory/Chest: lungs clear, normal breath sounds, no respiratory distress, no accessory muscle use Cardiovascular: regular rate, rhythm, no edema, no murmur Abdomen: normal bowel sounds, soft, + tenderness Laboratory Results Last 24 Hours Test 01/26/17 05:36 01/26/17 06:46 Sodium Level 142 mmol/L Potassium Level mmol/L 3.6 mmol/L Chloride Level 108 mmol/L Carbon Dioxide Level 29 mmol/L Anion Gap 5.0 mmol/L Blood Urea Nitrogen 2 mg/dl Creatinine 0.71 mg/dl Est Creatinine Clear Calc Drug Dose 128.3 ml/min Estimated GFR () 117.6 Estimated GFR (Non- 101.4 BUN/Creatinine Ratio 3.3 Random Glucose 96 mg/dl Calcium Level 8.6 mg/dl Assessment and Plan This is a 46 year old female with a PMH of diverticular disease with diverticular abscess s/p drainage and left colonic resection with Kin procedure, then closure of colostomy in February 2011, repair of incisional hernia - presents with abdominal pain; found to have small bowel obstruction Partial Small Bowel Obstruction - resolving presented with abdominal pain, multiple abdominal surgeries in the past Abdominal CT on admission suggests partial SBO, likely due to adhesions appreciate general surgery input for now, will continue clears KUB from 01/26 suggests resolution of SBO will continue clears and tramadol PRN due to abdominal pain advance diet when tolerated, possibly on 01/27 will discharge once tolerating diet DVT ppx Lovenox FULL CODE
[2017-01-26 23:18] VITALS: BP 130/83; PULSE 66; TEMP 37.1; O2SAT 93
[2017-01-27] MEDS: D5W AND LACTATED RINGERS 1,000 ML IV SCH (05:57)
[2017-01-27] MEDS: RANITIDINE IV 50 MG in DEXTROSE 5% 100ML 100 ML IV SCH (05:57)
[2017-01-27] MEDS: HYDROmorphone INJ 0.5 MG/0.5 ML SYR IV PRN ×2 (06:02→09:08)
[2017-01-27 06:54] LABS: HEMATOCRIT 40.2 % (37-47); MEAN CELL VOLUME 88.7 fL (80-100); MEAN CORPUSCULAR HEMOGLOBIN 29.1 pg (25-34); MEAN CORPUSCULAR HGB CONC 32.8 g/dl (32-36); MEAN PLATELET VOLUME 9.2 fL (7.4-10.4); PLATELET COUNT 232 K/uL (130-400); RED BLOOD COUNT 4.53 M/uL (4.2-5.4); WHITE BLOOD COUNT 6.51 K/uL (4.8-10.8)
[2017-01-27 07:18] LABS: BUN/CREATININE RATIO 3.4 (10-20); CALCIUM 8.7 mg/dl (8.5-10.1); CREATININE 0.69 mg/dl (0.60-1.20); POTASSIUM 3.5 mmol/L (3.5-5.1)
--- NOTE | 2017-01-27 07:31 | Surgery Progress Note ---
Surgery Progress Note Date of Service Jan 27, 2017. Subjective + diet (tolerating clears) Feels better today Pain less severe, less frequent and only lasts for fleeting amount of time Objective Vital Signs: Date Time Temp Pulse Resp B/P (MAP) Pulse Ox O2 Delivery O2 Flow Rate FiO2 01/27/17 00:30 Room Air 01/26/17 23:18 37.1 66 18 130/83 (99) 93 Room Air 01/26/17 17:00 Room Air 01/26/17 14:54 37.1 63 18 116/77 (90) 94 Room Air 01/26/17 07:55 Room Air Abdomen: non distended, soft, + tenderness (minimal) Laboratory Results: Results Past 24 Hours Test 01/27/17 06:36 Range/Units White Blood Count 6.51 4.8-10.8 K/uL Red Blood Count 4.53 4.2-5.4 M/uL Hemoglobin 13.2 12.0-16.0 g/dL Hematocrit 40.2 37-47 % Mean Corpuscular Volume 88.7 80-100 fL Mean Corpuscular Hemoglobin 29.1 25-34 pg Mean Corpuscular Hemoglobin Concent 32.8 32-36 g/dl RDW Standard Deviation 54.0 36.4-46.3 fL RDW Coefficient of Variation 16.5 11.5-14.5 % Platelet Count 232 130-400 K/uL Mean Platelet Volume 9.2 7.4-10.4 fL Sodium Level 141 136-145 mmol/L Potassium Level 3.5 3.5-5.1 mmol/L Chloride Level 109 98-107 mmol/L Carbon Dioxide Level 27 21-32 mmol/L Anion Gap 5.0 3-11 mmol/L Blood Urea Nitrogen 2 7-18 mg/dl Creatinine 0.69 0.60-1.20 mg/dl Est Creatinine Clear Calc Drug Dose 132.1 ml/min Estimated GFR () 120.1 Estimated GFR (Non- 103.7 BUN/Creatinine Ratio 3.4 10-20 Random Glucose 103 70-99 mg/dl Calcium Level 8.7 8.5-10.1 mg/dl Assessment & Plan Partial SBO resolving Can advance to full liquid diet
[2017-01-27 07:45] VITALS: BP 128/80; PULSE 64; TEMP 36.6; O2SAT 96
[2017-01-27] MEDS: ENOXAPARIN 40 MG/0.4 ML SYR SQ SCH (09:08)
--- NOTE | 2017-01-27 11:32 | Progress Note ---
Subjective Date of Service: Jan 27, 2017. 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 Review of Systems Constitutional: No fever, No chills, No weakness Respiratory: No cough, No sputum Cardiac: No chest pain Abdomen: + pain, + diarrhea, No nausea, No vomiting, No constipation, No GI bleeding Female : No dysuria, No urinary frequency Heme: No abnormal bleeding/bruising Medications Current Inpatient Medications Medications (Trade) Dose Ordered Sig/Laz Route Start Time Stop Time Status Last Admin Dose Admin Ondansetron HCl (Zofran Inj) 4 mg Q6H PRN IV 01/25/17 00:45 02/24/17 00:44 Dextrose/Lactated Ringer's 1,000 ml @ 100 mls/hr Q10H IV 01/25/17 01:15 02/24/17 01:14 01/27/17 05:57 100 MLS/HR Ranitidine HCl 50 mg/Dextrose 102 ml @ 200 mls/hr Q8 IV 01/25/17 06:00 02/24/17 05:59 01/27/17 05:57 200 MLS/HR Hydromorphone HCl (Dilaudid Inj) 0.5 mg Q3H PRN IV 01/25/17 01:15 02/08/17 01:14 01/27/17 09:08 0.5 MG Enoxaparin Sodium (Lovenox Inj) 40 mg QAM SQ 01/25/17 09:00 02/24/17 08:59 01/27/17 09:08 40 MG Objective Vital Signs Date Time Temp Pulse Resp B/P (MAP) Pulse Ox O2 Delivery O2 Flow Rate FiO2 01/27/17 07:45 36.6 64 16 128/80 (96) 96 Room Air 01/27/17 07:45 96 Room Air 01/27/17 00:30 Room Air 01/26/17 23:18 37.1 66 18 130/83 (99) 93 Room Air 01/26/17 17:00 Room Air 01/26/17 14:54 37.1 63 18 116/77 (90) 94 Room Air Physical Exam General Appearance: no apparent distress, + obese Respiratory/Chest: lungs clear, normal breath sounds, no respiratory distress, no accessory muscle use Cardiovascular: regular rate, rhythm, no edema, no gallop, no JVD, no murmur Abdomen: normal bowel sounds, soft, + tenderness Extremities: normal range of motion, non-tender, normal inspection, no pedal edema, no calf tenderness Laboratory Results Last 24 Hours Test 01/27/17 06:36 White Blood Count 6.51 K/uL Red Blood Count 4.53 M/uL Hemoglobin 13.2 g/dL Hematocrit 40.2 % Mean Corpuscular Volume 88.7 fL Mean Corpuscular Hemoglobin 29.1 pg Mean Corpuscular Hemoglobin Concent 32.8 g/dl RDW Standard Deviation 54.0 fL RDW Coefficient of Variation 16.5 % Platelet Count 232 K/uL Mean Platelet Volume 9.2 fL Sodium Level 141 mmol/L Potassium Level 3.5 mmol/L Chloride Level 109 mmol/L Carbon Dioxide Level 27 mmol/L Anion Gap 5.0 mmol/L Blood Urea Nitrogen 2 mg/dl Creatinine 0.69 mg/dl Est Creatinine Clear Calc Drug Dose 132.1 ml/min Estimated GFR () 120.1 Estimated GFR (Non- 103.7 BUN/Creatinine Ratio 3.4 Random Glucose 103 mg/dl Calcium Level 8.7 mg/dl Assessment and Plan This is a 46 year old female with a PMH of diverticular disease with diverticular abscess s/p drainage and left colonic resection with Kin procedure, then closure of colostomy in February 2011, repair of incisional hernia - presents with abdominal pain; found to have small bowel obstruction Partial Small Bowel Obstruction - resolving 01/27 advance diet to full liquid d/c IV dilaudid decrease IVF rate change IV Zantac to PO plan for discharge later today or in the AM (01/28) depending on how she tolerates lunch 01/26 presented with abdominal pain, multiple abdominal surgeries in the past Abdominal CT on admission suggests partial SBO, likely due to adhesions appreciate general surgery input for now, will continue clears KUB from 01/26 suggests resolution of SBO will continue clears and tramadol PRN due to abdominal pain advance diet when tolerated, possibly on 01/27 will discharge once tolerating diet DVT ppx Lovenox FULL CODE
[2017-01-27] MEDS: TRAMADOL HCL 50 MG TAB PO PRN ×2 (13:32→22:29)
[2017-01-27] MEDS ORDERED: RANI150T3 PO (21:05)
[2017-01-27] MEDS ORDERED: ULT50X PO (21:05)
--- NOTE | 2017-01-27 21:08 | Discharge Instructions ---
Discharge Instructions Date of Service Jan 27, 2017. Admission Reason for Admission: Partial Small Bowel Obstruction Discharge Discharge Diagnosis / Problem: Partial SBO Discharge Goals Goal(s): Decrease discomfort, Improve function, Diagnostic testing, Therapeutic intervention Activity Recommendations Activity Limitations: resume your previous activity . Instructions / Follow-Up Instructions / Follow-Up Please follow-up with your primary care physician - you will get a phone call with a date and time Current Hospital Diet Patient's current hospital diet: Full Liquid Diet Discharge Diet Recommended Diet: Low Fiber Diet Pending Studies Studies pending at discharge: no Medical Emergencies . Who to Call and When: Medical Emergencies: If at any time you feel your situation is an emergency, please call 911 immediately. . Non-Emergent Contact Non-Emergency issues call your: Primary Care Provider . . "Provider Documentation" section prepared by Josh Mclaughlin. . VTE Core Measure Inpt VTE Proph given/why not?: Enoxaparin (Lovenox) [place] Drug Monitoring Program Search Results: patient reviewed within database, no issues identified
--- NOTE | 2017-01-27 21:10 | Discharge Summary ---
Discharge Summary Date of Service Jan 27, 2017. Discharge Summary Admission Date: Jan 25, 2017 at 00:45 Discharge Date: Jan 27, 2017 Discharge Disposition: Home Principal Diagnosis: Partial SBO Medication Reconciliation New Medications: Ranitidine Hcl (Zantac) 150 Mg Tab 150 MG PO DAILY for 30 Days, #30 TAB Tramadol HCl (Tramadol HCl) 50 Mg Tab 50 MG PO Q6H PRN for Pain for 3 Days, #12 TAB Admission Information HPI (per Admitting provider): 46-year-old female followed by Dr. Fisher. History of diverticulitis with diverticular abscess in 2010. Exploratory laparotomy, drainage of abscess, and left colon resection with Kin procedure in October 2010. Laparoscopic assisted colon resection and closure of colostomy February 2011. Repair of incisional hernia October 2011. This afternoon she developed sudden onset of mid abdominal pain. The pain was moderately severe. It did not radiate. Associated with nausea, no emesis. Last normal bowel movement was yesterday. No melena or hematochezia. No fever. No dysuria or hematuria. Came to the ED for evaluation. Had some relief after administration of ondansetron and morphine. Placement of nasogastric tube was attempted in the ED, but the patient could not tolerate the procedure. . Physical Exam (per Admitting): General Appearance: WD/WN, + mild distress Head: normocephalic, atraumatic Eyes: normal inspection, PERRL, EOMI, sclerae normal ENT: hearing grossly normal, pharynx normal, + pertinent finding (upper and lower dentures) Neck: supple, no adenopathy, thyroid normal, trachea midline Respiratory/Chest: lungs clear, normal breath sounds, no accessory muscle use Cardiovascular: regular rate, rhythm, no edema, no gallop, no JVD, no murmur , normal peripheral pulses Abdomen/GI: + pertinent finding (slightly distended, hyperactive bowel sounds, moderate mid abdominal tenderness, no palpable masses or hepatosplenomegaly) Extremities/Musculoskelatal: no calf tenderness, no pedal edema Neurologic/Psych: 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 as tested (PERRL, EOMI, no facial palsy, no dysarthria), no motor/sensory deficits (motor strength grossly intact bilaterally), alert, normal mood/affect, oriented x 3 Skin: normal color, warm/dry, no rash Lymphatic: no adenopathy (cervical) Hospital Course This is a 46 year old female with a PMH of diverticular disease with diverticular abscess s/p drainage and left colonic resection with Kin procedure, then closure of colostomy in February 2011, repair of incisional hernia - presents with abdominal pain; found to have small bowel obstruction Partial Small Bowel Obstruction - resolving 01/27 advance diet to full liquid d/c IV dilaudid decrease IVF rate change IV Zantac to PO plan for discharge later today or in the AM (01/28) depending on how she tolerates lunch 01/26 presented with abdominal pain, multiple abdominal surgeries in the past Abdominal CT on admission suggests partial SBO, likely due to adhesions appreciate general surgery input for now, will continue clears KUB from 01/26 suggests resolution of SBO will continue clears and tramadol PRN due to abdominal pain advance diet when tolerated, possibly on 01/27 will discharge once tolerating diet DVT ppx Lovenox FULL CODE Total time spent on discharge = 25 minutes This includes examination of the patient, discharge planning, medication reconciliation, and communication with other providers. Discharge Instructions Please follow-up with your primary care physician - you will get a phone call with a date and time
[2017-01-27 21:35] VITALS: BP 128/80; PULSE 64; TEMP 36.6; O2SAT 96
[2017-01-28] MEDS ORDERED: RANITIDINE HCL 150 MG TAB PO SCH (09:00)
== END 2017-01-27 22:47 | disposition home or self-care (01) | DRG 389 ==
LOC: C.EDB 19:03 → C.MSN 01-25 00:45 → ENRESERV 01-25 00:59
PROVIDERS: ADMIT Hospitalist; ATTEND Family Medicine
DX: K56.5 Intestinal adhesions [bands] with obstruction (postinfection) (principal); Z68.41 Body mass index [BMI] 40.0-44.9, adult; F17.200 Nicotine dependence, unspecified, uncomplicated; E66.9 Obesity, unspecified; Z87.19 Personal history of other diseases of the digestive system